=== PATIENT | male | born 1995 | race African-American/Black ===

== ENCOUNTER 2017-04-02 20:24 | Emergency (ER) | payer MEDICAID ==
[~2017-04-02] VITALS: Ht 160 cm; Wt 59.0 kg
[2017-04-02 20:28] VITALS: BP 126/85
[2017-04-02 21:15] LABS: ASPARTATE AMINO TRANSFERASE 24 U/L (15-37); BLOOD UREA NITROGEN 16 mg/dL (7-18)
[2017-04-02 21:19] LABS: ACETAMINOPHEN < 2 mcg/mL (10-30)
[2017-04-02 21:28] LABS: DAU SCREEN DISCLAIMER
== END 2017-04-03 00:02 | disposition home or self-care (01) ==
LOC: ED 22:21
DX: R45.851 Suicidal ideations (principal); F43.10 Post-traumatic stress disorder, unspecified
CPT/HCPCS: 36415; 80053; 80307; 80329; 85025; 99284; G0480